=== PATIENT | male | born 1970 | race Caucasian/White ===

== ENCOUNTER 2023-06-18 08:59 | Emergency (ER) | payer OTHER ==
[~2023-06-18] VITALS: Ht 177.8 cm; Wt 97.5 kg
[2023-06-18 09:45] LABS: BASO # 0.1 10*3/uL (0.0-0.1); EOS # 0.2 10*3/uL (0.0-0.4); EOS % 4.5 % (1.0-4.0); HEMATOCRIT 41.5 % (42.0-52.0); LYMPH # 1.3 10*3/uL (1.3-4.4); LYMPH % 25.3 % (27.0-41.0); MEAN CELL VOLUME 92.6 fl (80.0-94.0); MEAN CORPUSCULAR HGB 32.8 pg (27.0-31.0); MEAN CORPUSCULAR HGB CONC 35.4 g/dl (33.0-37.0); MEAN PLATELET VOLUME 9.9 fl (9.6-12.3); MONO # 0.5 10*3/uL (0.1-1.0); MONO % 8.8 % (3.0-9.0); NEUT # 3.1 10*3/uL (2.3-7.9); NEUT % 59.4 % (47.0-73.0); PLATELET COUNT AUTOMATED 178 10*3/uL (130-400); RED BLOOD COUNT 4.48 10*6/uL (4.50-5.90); RED CELL DISTRI WIDTH 13.2 % (0-14.5); WHITE BLOOD COUNT 5.1 10*3/uL (4.8-10.8)
[2023-06-18 09:57] LABS: ACT PARTIAL THROMBO TIME 28.7 SECONDS (20.0-32.1)
[2023-06-18 10:06] LABS: ALKALINE PHOSPHATASE 83 U/L (46-116); BUN 10 mg/dl (9-23); CHLORIDE 105 mmol/L (98-107); POTASSIUM 4.5 mmol/L (3.4-5.1); SGPT/ALT 29 U/L (10-49); TOTAL PROTEIN 6.6 gm/dL (6.0-8.0)
== END 2023-06-18 15:07 | disposition home or self-care (01) ==
LOC: ED 08:59
PROVIDERS: Emergency Medicine
DX: R51.9 Headache, unspecified (principal); Z91.040 Latex allergy status

== ENCOUNTER 2025-08-14 21:16 | Emergency (ER) | payer OTHER ==
[~2025-08-14] VITALS: Ht 177.8 cm; Wt 86.2 kg
[2025-08-14] MEDS ORDERED: Dexamethasone/Tobramycin OPHTHALMIC 2.5 ML BOTTLE OPH ONE (21:35)
[2025-08-14] MEDS ORDERED: Tetracaine Hydrochloride 0.5% 4 ML BOT OPH ONE (21:35)
[2025-08-14] MEDS ORDERED: SODIUM CHLORIDE 0.9% 500 ML IV ONE (22:07)
== END 2025-08-14 22:46 | disposition home or self-care (01) ==
LOC: ED 21:16
DX: H10.89 Other conjunctivitis (principal)

== ENCOUNTER 2025-09-12 20:27 | Emergency (ER) | payer OTHER ==
[~2025-09-12] VITALS: Ht 177.8 cm; Wt 86.2 kg
[2025-09-12] MEDS ORDERED: SODIUM CHLORIDE 0.9% 1,000 ML IV ONE (21:09)
== END 2025-09-12 21:44 | disposition home or self-care (01) ==
LOC: ED 20:27
DX: H10.213 Acute toxic conjunctivitis, bilateral (principal)